=== PATIENT | female | born 1945 | race Caucasian/White ===

== ENCOUNTER → 2017-08-04 | Outpatient (CLI) | payer OTHER | END | disposition home or self-care (01) | LOC: SONOGRAMA 10:46 | DX: E04.1 Nontoxic single thyroid nodule (principal) ==

== ENCOUNTER 2018-10-24 14:08 | Emergency (ER) | payer OTHER ==
[~2018-10-24] VITALS: Ht 162.6 cm; Wt 54.9 kg
[2018-10-24] MEDS ORDERED: XANAX XR0.5 MG (14:19)
[2018-10-24] MEDS ORDERED: CELEXA20 MG (14:19)
[2018-10-24] MEDS ORDERED: CRESTOR10 MG (14:19)
[2018-10-24] MEDS ORDERED: LEVOXYL25 MCG (14:20)
== END 2018-10-24 21:38 | disposition home or self-care (01) ==
LOC: ER 14:08
DX: S82.61XA Displaced fracture of lateral malleolus of right fibula, initial encounter for closed fracture (principal); S82.62XA Displaced fracture of lateral malleolus of left fibula, initial encounter for closed fracture; W01.198A Fall on same level from slipping, tripping and stumbling with subsequent striking against other object, initial encounter; Y93.89 Activity, other specified; Y92.89 Other specified places as the place of occurrence of the external cause; Y99.8 Other external cause status

== ENCOUNTER 2018-12-06 15:19 | Outpatient (CLI) | payer OTHER ==
[~2018-12-06 15:19] MED LIST: CELEXA20 MG; CRESTOR10 MG; LEVOXYL25 MCG; XANAX XR0.5 MG
== END 2018-12-06 15:27 | disposition home or self-care (01) ==
LOC: RAD 501 15:19
DX: M25.571 Pain in right ankle and joints of right foot (principal); M25.572 Pain in left ankle and joints of left foot; M79.671 Pain in right foot; M79.672 Pain in left foot

== ENCOUNTER → 2019-03-28 | Outpatient (CLI) | payer OTHER | END | disposition home or self-care (01) | LOC: MAMO-SONO 11:45 → SONOGRAMA 12:01 | DX: M65.871 Other synovitis and tenosynovitis, right ankle and foot (principal); M65.872 Other synovitis and tenosynovitis, left ankle and foot ==

== ENCOUNTER 2020-04-13 12:50 | Outpatient (CLI) | payer OTHER | END 2020-04-13 12:55 | disposition home or self-care (01) | LOC: SONOGRAMA 12:50 → MAMO-SONO 13:45 | PROVIDERS: ATTEND Internal Medicine Endocrinology, Diabetes & Metabolism | DX: E04.1 Nontoxic single thyroid nodule (principal) ==

== ENCOUNTER 2020-11-05 15:27 | Outpatient (CLI) | payer OTHER | END 2020-11-05 15:33 | disposition home or self-care (01) | LOC: RAD 15:27 | PROVIDERS: ATTEND Ophthalmology | DX: H25.11 Age-related nuclear cataract, right eye (principal) ==

== ENCOUNTER → 2022-09-30 | Outpatient (CLI) | payer OTHER | END | disposition home or self-care (01) | LOC: SONOGRAMA 10:58 | PROVIDERS: ATTEND Internal Medicine Endocrinology, Diabetes & Metabolism | DX: E04.1 Nontoxic single thyroid nodule (principal) ==

== ENCOUNTER 2023-03-02 16:04 | Outpatient (CLI) | payer OTHER | END 2023-03-02 16:13 | disposition home or self-care (01) | LOC: RAD 16:04 | PROVIDERS: ATTEND Internal Medicine Cardiovascular Disease | DX: M12.9 Arthropathy, unspecified (principal); M10.9 Gout, unspecified ==

== ENCOUNTER 2023-03-03 12:39 | Outpatient (CLI) | payer OTHER | END 2023-03-03 12:45 | disposition home or self-care (01) | LOC: NUCLEAR 12:39 | PROVIDERS: ATTEND Internal Medicine Cardiovascular Disease | DX: I87.2 Venous insufficiency (chronic) (peripheral) (principal) ==

== ENCOUNTER 2023-04-23 12:24 | Outpatient (CLI) | payer OTHER | END 2023-04-23 12:42 | disposition home or self-care (01) | LOC: MRI 12:24 | PROVIDERS: ATTEND Orthopaedic Surgery | DX: M25.572 Pain in left ankle and joints of left foot (principal); S82.65XA Nondisplaced fracture of lateral malleolus of left fibula, initial encounter for closed fracture; M79.672 Pain in left foot | CPT/HCPCS: 73721 ==

== ENCOUNTER 2023-05-18 10:52 | Outpatient (CLI) | payer OTHER | END 2023-05-18 10:57 | disposition home or self-care (01) | LOC: NUCLEAR 10:52 | PROVIDERS: ATTEND Orthopaedic Surgery | DX: M81.0 Age-related osteoporosis without current pathological fracture (principal) ==

== ENCOUNTER → 2023-06-30 09:28 | Outpatient (CLI) | payer OTHER ==
[2023-06-30 11:13] LABS: ALBUMIN 3.5 gm/dL (3.4-5.0); BILIRUBIN TOTAL 0.64 mg/dL (0.3-1.2); CALCIUM 9.2 mg/dL (8.5-10.1); CREATININE SERUM 0.95 mg/dL (0.55-1.02); GFR 57.19; GLOBULINA 3.1 G/DL (2.4-3.5); MAGNESIUM 2.3 mg/dL (1.8-2.4); PHOSPHOROUS 3.5 mg/dL (2.5-4.9); POTASSIUM 4.34 mEq/L (3.5-5.1); TOTAL PROTEIN 6.6 gm/dL (6.4-8.2)
[2023-07-03 16:06] LABS: VITAMIN K < 0.10 ng/mL (0.10-2.20)
== END | disposition home or self-care (01) ==
LOC: LAB 09:28
PROVIDERS: ATTEND Orthopaedic Surgery
DX: E55.9 Vitamin D deficiency, unspecified (principal); M85.9 Disorder of bone density and structure, unspecified; E56.1 Deficiency of vitamin K; E21.3 Hyperparathyroidism, unspecified; Z88.0 Allergy status to penicillin